=== PATIENT | male | born 1955 | race Hispanic/Latino ===

== ENCOUNTER 2017-05-04 08:20 | Observation (INO) | payer MEDICARE, BC ==
[2017-05-04] MEDS ORDERED: HYDROmorphone 0.5 mg/0.5 ml ISec IVP STA (08:50)
[2017-05-04 09:28] LABS: ALB/GLOB RATIO 1.3 (1.1-1.8); ALBUMIN 4.1 g/dL (3.0-4.8); CALCIUM 9.3 mg/dL (8.4-10.5)
[2017-05-04 09:31] LABS: BASO # 0.03 K/mm3 (0.0-2.0); BASO % 0.4 % (0.0-3.0); EOS # 0.1 (0.0-0.7); EOS % 1.3 % (1.5-5.0); GRAN # 6.33 (1.4-6.5); GRAN % 77.3 % (50.0-68.0); HEMOGLOBIN 13.4 g/dL (14.0-18.0); LYMPH # 1.1 (1.2-3.4); LYMPH % 13.4 % (22.0-35.0); MEAN CELL VOLUME 95.3 fl (80.0-105.0); MEAN CORPUSCULAR HEMOGLOBIN 31.5 pg (25.0-35.0); MEAN CORPUSCULAR HGB CONC 33.1 g/dl (31.0-37.0); MEAN PLATELET VOLUME 9.9 fl (7.0-11.0); MONO # 0.6 (0.1-0.6); MONO % 7.6 % (1.0-6.0); RBC 4.25 10^6/uL (3.5-6.1); RED CELL DISTRIBUTION WIDTH 12.5 % (11.5-14.5); WHITE BLOOD COUNT 8.2 10^3/ul (4.5-11.0)
[2017-05-04 09:35] LABS: INR 1.05 (0.93-1.08); PARTIAL THROMBOPLASTIN TIME 27.1 Seconds (25.1-36.5); PROTHROMBIN TIME 12.1 SECONDS (9.4-12.5)
--- NOTE | 2017-05-04 10:21 | ED PDOC ---
Arrival/HPI - General Chief Complaint: Lower Extremity Problem/Injury Time Seen by Provider: 05/04/17 08:31 Historian: Patient, Family - History of Present Illness Narrative History of Present Illness (Text): 05/04/17 10:18 Patient is a 61 yo male with history of ESRD, vascular disease, osteomyelitis, presents to ED sent by cue worker Dr. Salter for assessment of worsening pain and swelling to left toe. Reportedly patient has had history of recent vascular surgery with chronic wound care to left foot. Patient with increased pain and swelling to foot, scheduled for likely surgery on worsening pain. Past Medical History - Infectious Disease Hx of Infectious Diseases: None - Tetanus Immunization Tetanus Immunization: Unknown - Cardiac Hx Cardiac Disorders: Yes Hx Hypertension: Yes Hx Peripheral Vascular Disease: Yes - Pulmonary Hx Respiratory Disorders: No - Neurological Hx Neurological Disorder: No Other/Comment: Neuropathy right foot - HEENT Hx HEENT Disorder: No - Renal Hx Renal Failure: Yes (home dialysis) Other/Comment: home dialysis M,T,W, TH, and Sat. Left AV shunt - Endocrine/Metabolic Hx Diabetes Mellitus Type 1: Yes Hx Diabetes Mellitus Type 2: Yes - Hematological/Oncological Hx Blood Disorders: No - Integumentary Hx Dermatological Disorder: Yes (DIABETIC FOOT ULCER) - Musculoskeletal/Rheumatological Hx Musculoskeletal Disorders: Yes Hx Falls: Yes Hx Osteomyelitis: Yes - Gastrointestinal Hx Gastrointestinal Disorders: No Hx Gall Bladder Disease: Yes (Pt has a drain. Pt stated it was to drain out gall bladder.) - Genitourinary/Gynecological Hx Genitourinary Disorders: Yes - Psychiatric Hx Psychophysiologic Disorder: No Hx Depression: No Hx Emotional Abuse: No Hx Physical Abuse: No Hx Substance Use: No - Surgical History Hx Amputation: Yes (2nd/3rd toes right foot, great toe on left and 2 fingers left hand) Hx Coronary Artery Bypass Graft: Yes Hx Open Heart Surgery: Yes Other/Comment: Right ABK - Anesthesia Hx Anesthesia: Yes Hx Anesthesia Reactions: No Hx Malignant Hyperthermia: No - Suicidal Assessment Feels Threatened In Home Enviroment: No Family/Social History Smoking Status: Former Smoker Hx Alcohol Use: No Hx Substance Use: No Allergies/Home Meds Allergies/Adverse Reactions: Allergies gabapentin [From Neurontin] Adverse Reaction (Verified 05/04/17 09:52) ANAPHYLAXIS stress test dye Allergy (Uncoded 05/04/17 09:52) COUGH States hiccups Home Medications: Home Meds Medication Instructions Recorded Confirmed Metoprolol Tartrate 25 mg PO BID 10/02/13 05/04/17 Crestor 20 mg PO DAILY 05/13/15 05/04/17 Sevelamer Carbonate [Renvela] 3 tab PO TID 05/13/15 05/04/17 Cinacalcet [Sensipar] 60 mg PO DAILY 05/04/17 05/04/17 Insulin Aspart [Novolog FLEXPEN] 0 unit SC DAILY 05/04/17 05/04/17 Review of Systems - Review of Systems Constitutional: absent: Fevers Respiratory: absent: SOB Cardiovascular: absent: Chest Pain Gastrointestinal: absent: Abdominal Pain Genitourinary Male: absent: Dysuria Musculoskeletal: Other (foot and toe pain) Skin: Cellulitis Neurological: absent: Headache Psychiatric: absent: Depression Medical Decision Making - Lab Interpretations Lab Results: 05/04/17 09:00 05/04/17 09:00 Lab Results 05/04/17 09:00: Sodium 136, Potassium 3.6, Chloride 88 L, Carbon Dioxide 31, Anion Gap 20, BUN 42 H, Creatinine 7.7 H*, Est GFR ( Amer) 9, Est GFR ( Non-Af Amer) 7, Random Glucose 146 H, Calcium 9.3, Total Bilirubin 0.8, AST 22, ALT 26, Alkaline Phosphatase 144 H, Total Protein 7.3, Albumin 4.1, Globulin 3.2 , Albumin/Globulin Ratio 1.3 05/04/17 09:00: PT 12.1, INR 1.05, APTT 27.1 05/04/17 09:00: WBC 8.2 D, RBC 4.25, Hgb 13.4 L, Hct 40.5 L, MCV 95.3, MCH 31.5 , MCHC 33.1, RDW 12.5, Plt Count 307, MPV 9.9, Gran % 77.3 H, Lymph % (Auto) 13.4 L, Sargent % (Auto) 7.6 H, Eos % (Auto) 1.3 L, Baso % (Auto) 0.4, Gran # 6.33 , Lymph # 1.1 L, Sargent # 0.6, Eos # 0.1, Baso # 0.03 - RAD Interpretation Radiology Orders: 05/04/17 08:52 CHEST PORTABLE [RAD] Stat - Medication Orders Current Medication Orders: Discontinued Medications Hydromorphone HCl (Dilaudid) 1 mg IVP STAT STA Stop: 05/04/17 08:51 Last Admin: 05/04/17 09:49 Dose: 1 mg MAR Pain Assessment Document 05/04/17 09:49 [facility] (Rec: 05/04/17 09:50 [facility] [id number]) Pain Reassessment Is this a pain reassessment? Yes IVP Administration Document 05/04/17 09:49 [facility] (Rec: 05/04/17 09:50 [facility] [id number]) Charges for Administration # of IVP Administrations 1 Disposition/Present on Arrival - Present on Arrival History of DVT/PE: No History of Uncontrolled Diabetes: No Urinary Catheter: No History of Decub. Ulcer: No History Surgical Site Infection Following: Orthopedic Procedures, None - Disposition
[2017-05-04 11:11] LABS: VENOUS BLOOD GAS BASE EXCESS 6.9 mmol/L (0.0-2.0); VENOUS BLOOD GAS PO2 62 mm/Hg (30-55); VENOUS BLOOD PH 7.37 (7.32-7.43)
[2017-05-04] MEDS ORDERED: HYDROmorphone 0.5 mg/0.5 ml ISec IVP PRN (11:16)
[2017-05-04 11:27] VITALS: BP 106/76; PULSE 74; RESP 18; TEMP 97.9; O2SAT 95
[2017-05-04] MEDS ORDERED: Insulin Reg-LOW-Coverage SC SCH (11:30)
[2017-05-04] MEDS ORDERED: Sodium Chloride 0.45% 1,000 ML IV SCH (12:00)
[2017-05-04] MEDS: HYDROmorphone 2 mg/ml ISec IVP PRN ×2 (12:14→16:15)
--- NOTE | 2017-05-04 12:27 | RAD ---
HISTORY: osteomyelitis COMPARISON: 05/13/2015 FINDINGS: LUNGS: No active pulmonary disease. PLEURA: No significant pleural effusion identified, no pneumothorax apparent. CARDIOVASCULAR: Mild cardiomegaly OSSEOUS STRUCTURES: Sternal wires VISUALIZED UPPER ABDOMEN: Normal. OTHER FINDINGS: None. IMPRESSION: No active disease.
--- NOTE | 2017-05-04 14:34 | CP.PCM.CON ---
History of Present Illness - History of Present Illness History of Present Illness: 61 year old male with PMHx ESRD, vascular disease, osteomyelitis seen on floors after admission through ED for gangrenous, infected left second digit. Patient was advised to go through ED after he was seen in the wound care center on Tuesday05/02/17 so that he could be medically cleared for surgery tomorrow, . However, patient did not stop his Plavix and as a result surgery has been rescheduled for Tuesday05/09/16. Patient will be discharged home today. He states that his foot is not in pain. He is AAO x 3 and NAD at examination. He denies any new signs of infection including erythema, malodor, purulent drainage or increased gangrenous changes. Patient denies any further pedal complaints. He denies N/V/F/C/CP/SOB/D/posterior calf pain. Review of Systems - Review of Systems Review of Systems: ROS as per HPI Past Patient History - Infectious Disease Hx of Infectious Diseases: None - Tetanus Immunizations Tetanus Immunization: Unknown - Past Social History Smoking Status: Former Smoker - CARDIAC Hx Cardiac Disorders: Yes Hx Hypertension: Yes Hx Peripheral Vascular Disease: Yes - PULMONARY Hx Respiratory Disorders: No - NEUROLOGICAL Hx Neurological Disorder: No Other/Comment: Neuropathy right foot - HEENT Hx HEENT Problems: No - RENAL Hx Renal Failure: Yes (home dialysis) Other/Comment: home dialysis M,T,W, TH, and Sat. Left AV shunt - ENDOCRINE/METABOLIC Hx Diabetes Mellitus Type 1: Yes Hx Diabetes Mellitus Type 2: Yes - HEMATOLOGICAL/ONCOLOGICAL Hx Blood Disorders: No - INTEGUMENTARY Hx Dermatological Problems: Yes (DIABETIC FOOT ULCER) - MUSCULOSKELETAL/RHEUMATOLOGICAL Hx Musculoskeletal Disorders: Yes Hx Falls: Yes Hx Osteomyelitis: Yes - GASTROINTESTINAL Hx Gastrointestinal Disorders: No Hx Gall Bladder Disease: Yes (Pt has a drain. Pt stated it was to drain out gall bladder.) - GENITOURINARY/GYNECOLOGICAL Hx Genitourinary Disorders: Yes - PSYCHIATRIC Hx Psychophysiologic Disorder: No Hx Depression: No Hx Emotional Abuse: No Hx Physical Abuse: No Hx Substance Use: No - SURGICAL HISTORY Hx Amputation: Yes (2nd/3rd toes right foot, great toe on left and 2 fingers left hand) Hx Coronary Artery Bypass Graft: Yes Hx Open Heart Surgery: Yes Other/Comment: Right ABK - ANESTHESIA Hx Anesthesia: Yes Hx Anesthesia Reactions: No Hx Malignant Hyperthermia: No Meds Home Medications: Home Medication List Medication Instructions Recorded Confirmed Type Cinacalcet [Sensipar] 60 mg PO HS tab 05/04/17 Rx Allergies/Adverse Reactions: Allergies Allergy/AdvReac Type Severity Reaction Status Date / Time gabapentin [From Neurontin] AdvReac ANAPHYLAXIS Verified 05/04/17 09:52 stress test dye Allergy COUGH Uncoded 05/04/17 09:52 - Medications Medications: Current Medications Aspirin (Ecotrin) 81 mg PO DAILY [facility] Last Admin: 05/04/17 11:46 Dose: 81 mg Atorvastatin Calcium (Lipitor) 80 mg PO DAILY [facility] [place] Last Admin: 05/04/17 11:46 Dose: 80 mg Cinacalcet (Sensipar) 60 mg PO [facility] Hydromorphone HCl (Dilaudid) 2 mg IVP Q4H PRN PRN Reason: Pain, moderate (4-7) Last Admin: 05/04/17 12:14 Dose: 2 mg Sodium Chloride (Sodium Chloride 0.45%) 1,000 mls @ 30 mls/hr IV .Q24H [facility] Last Admin: 05/04/17 12:14 Dose: 30 mls/hr Insulin Human Regular (Humulin R Low) 0 units SC ACHS [facility] [place] PRN Reason: Protocol Last Admin: 05/04/17 11:48 Dose: Not Given Metoprolol Tartrate (Lopressor) 25 mg PO BID [facility] Last Admin: 05/04/17 11:46 Dose: 25 mg Ondansetron HCl (Zofran Inj) 4 mg IVP Q6H PRN PRN Reason: Nausea/Vomiting Last Admin: 05/04/17 11:49 Dose: 4 mg Sevelamer HCl (Renagel) 2,400 mg PO TID [facility] Vitamin B Complex/Vit C/Folic Acid (Nephro-Ghassan) 1 tab PO 0800 [facility] Physical Exam - Constitutional Appears: Well, Non-toxic, No Acute Distress - Extremities Exam Additional comments: LE focused exam: Vasc: DP/PT pulses non-palpable to left LE. CFT > 3 seconds to remaining digits. Skin temperature warm to cool from proximal to distal. Mild edema noted to left foot Neuro: Epicritic and protective sensation grossly diminished to left LE Derm: Purple/black gangrenous changes noted to entirety of left second digit. Ulceration noted on dorsal aspect of left second digit with no signs of purulent drainage, undermining, tunneling, tracking or probe to bone. Otherwise , no open lesions, wounds, maceration, xerosis, abnormal pigmentation or abnormal growths noted b/l MSK: No POP to left second digit. AKA noted to right LE. History of amputations to LLE - Neurological Exam Neurological exam: Alert, Oriented x3 - Psychiatric Exam Psychiatric exam: Normal Affect, Normal Mood Results - Vital Signs Recent Vital Signs: Last Vital Signs Temp 97.9 F 05/04/17 11:25 Pulse 74 05/04/17 11:25 Resp 18 05/04/17 11:25 BP 106/76 05/04/17 11:25 Pulse Ox 95 05/04/17 11:25 - Labs Result Diagrams: 05/04/17 09:00 05/04/17 09:00 Labs: Laboratory Results - last 24 hr 05/04/17 05/04/17 09:45 11:30 pO2 62 H VBG pH 7.37 VBG pCO2 59.0 VBG HCO3 34.1 H VBG Total CO2 35.9 H VBG O2 Sat (Calc) 93.6 H VBG Base Excess 6.9 H VBG Potassium 4.4 Sodium 132.0 Chloride 91.0 L Glucose 166 H Lactate 1.7 FiO2 21.0 POC Glucose (mg/dL) 149 H Venous Blood Potassium 4.4 Assessment & Plan - Assessment and Plan (Free Text) Assessment: 61 year old male seen at bedside for gangrenous changes to left second digit Plan: Patient seen and evaluated at bedside with attending Dr. Salter Because patient did not stop his Plavix, surgery has been rescheduled for Tuesday05/09/17 Patient to be DC home today Patient made aware of the change in plans for his surgery Entire second toe dressed with betadine, gauze, kirlix Patient advised to wear surgical shoe at all times All preoperative testing has been performed at this time - Date & Time Date: 05/04/17 Time: 14:40
--- NOTE | 2017-05-04 16:13 | CP.PCM.CON ---
History of Present Illness - History of Present Illness History of Present Illness: renal note pt going home now. he will continue with home HD and f/up with his assisted living care manager thanks for consult Past Patient History - Infectious Disease Hx of Infectious Diseases: None - Tetanus Immunizations Tetanus Immunization: Unknown - Past Social History Smoking Status: Former Smoker - CARDIAC Hx Cardiac Disorders: Yes Hx Hypertension: Yes Hx Peripheral Vascular Disease: Yes - PULMONARY Hx Respiratory Disorders: No - NEUROLOGICAL Hx Neurological Disorder: No Other/Comment: Neuropathy right foot - HEENT Hx HEENT Problems: No - RENAL Hx Renal Failure: Yes (home dialysis) Other/Comment: home dialysis M,T,W, TH, and Sat. Left AV shunt - ENDOCRINE/METABOLIC Hx Diabetes Mellitus Type 1: Yes Hx Diabetes Mellitus Type 2: Yes - HEMATOLOGICAL/ONCOLOGICAL Hx Blood Disorders: No - INTEGUMENTARY Hx Dermatological Problems: Yes (DIABETIC FOOT ULCER) - MUSCULOSKELETAL/RHEUMATOLOGICAL Hx Musculoskeletal Disorders: Yes Hx Falls: Yes Hx Osteomyelitis: Yes - GASTROINTESTINAL Hx Gastrointestinal Disorders: No Hx Gall Bladder Disease: Yes (Pt has a drain. Pt stated it was to drain out gall bladder.) - GENITOURINARY/GYNECOLOGICAL Hx Genitourinary Disorders: Yes - PSYCHIATRIC Hx Psychophysiologic Disorder: No Hx Depression: No Hx Emotional Abuse: No Hx Physical Abuse: No Hx Substance Use: No - SURGICAL HISTORY Hx Amputation: Yes (2nd/3rd toes right foot, great toe on left and 2 fingers left hand) Hx Coronary Artery Bypass Graft: Yes Hx Open Heart Surgery: Yes Other/Comment: Right ABK - ANESTHESIA Hx Anesthesia: Yes Hx Anesthesia Reactions: No Hx Malignant Hyperthermia: No Meds Home Medications: Home Medication List Medication Instructions Recorded Confirmed Type Cinacalcet [Sensipar] 60 mg PO tab 05/04/17 Rx Allergies/Adverse Reactions: Allergies Allergy/AdvReac Type Severity Reaction Status Date / Time gabapentin [From Neurontin] AdvReac ANAPHYLAXIS Verified 05/04/17 09:52 stress test dye Allergy COUGH Uncoded 05/04/17 09:52 - Medications Medications: Current Medications Aspirin (Ecotrin) 81 mg PO DAILY [facility] Last Admin: 05/04/17 11:46 Dose: 81 mg Atorvastatin Calcium (Lipitor) 80 mg PO DAILY [facility] Last Admin: 05/04/17 11:46 Dose: 80 mg Cinacalcet (Sensipar) 60 mg PO [facility] Hydromorphone HCl (Dilaudid) 2 mg IVP Q4H PRN PRN Reason: Pain, moderate (4-7) Last Admin: 05/04/17 12:14 Dose: 2 mg Sodium Chloride (Sodium Chloride 0.45%) 1,000 mls @ 30 mls/hr IV .Q24H [facility] Last Admin: 05/04/17 12:14 Dose: 30 mls/hr Insulin Human Regular (Humulin R Low) 0 units SC ACHS [facility] PRN Reason: Protocol Last Admin: 05/04/17 11:48 Dose: Not Given Metoprolol Tartrate (Lopressor) 25 mg PO BID [facility] Last Admin: 05/04/17 11:46 Dose: 25 mg Ondansetron HCl (Zofran Inj) 4 mg IVP Q6H PRN PRN Reason: Nausea/Vomiting Last Admin: 05/04/17 11:49 Dose: 4 mg Sevelamer HCl (Renagel) 2,400 mg PO TID [facility] Last Admin: 05/04/17 15:41 Dose: Not Given Vitamin B Complex/Vit C/Folic Acid (Nephro-Ghassan) 1 tab PO 0800 [facility] Results - Vital Signs Recent Vital Signs: Last Vital Signs Temp 97.9 F 05/04/17 11:25 Pulse 74 05/04/17 11:25 Resp 18 05/04/17 11:25 BP 106/76 05/04/17 11:25 Pulse Ox 95 05/04/17 11:25 - Labs Result Diagrams: 05/04/17 09:00 05/04/17 09:00 Labs: Laboratory Results - last 24 hr 05/04/17 05/04/17 09:45 11:30 pO2 62 H VBG pH 7.37 VBG pCO2 59.0 VBG HCO3 34.1 H VBG Total CO2 35.9 H VBG O2 Sat (Calc) 93.6 H VBG Base Excess 6.9 H VBG Potassium 4.4 Sodium 132.0 Chloride 91.0 L Glucose 166 H Lactate 1.7 FiO2 21.0 POC Glucose (mg/dL) 149 H Venous Blood Potassium 4.4
--- NOTE | 2017-05-04 21:32 | HP ---
HISTORY OF PRESENT ILLNESS: I was called to come to the Emergency Room to see Dontae, Dr. Salter asked me to put him on my service apparently, so he can do surgery on his foot tomorrow on his left toe, it might be amputated. He had a recent vascular surgery with chronic wound care to the left foot with increased pain and swelling and scheduled for surgery. PAST MEDICAL HISTORY: End-stage renal disease, vascular disease, osteomyelitis, hypertension, neuropathy of the right foot, he is on home dialysis, diabetes, diabetic foot ulcer, falls, he has had a gallbladder disease, the patient has a drain out of the gallbladder, history of amputation of second and third toes of the right foot, right toe and left foot, two fingers of the left hand. He has had coronary artery bypass graft done, open heart surgery and right above-knee surgery. SOCIAL HISTORY: He is a former smoker. No alcohol. No drugs. ALLERGIES: GABAPENTIN AND STRESS TEST DYE. MEDICATIONS: He takes metoprolol, Crestor, Renvela, Sensipar and FlexPen insulin. REVIEW OF SYSTEMS: No acute vision or hearing changes. No sore throat. No chest pain. No palpitation. No shortness of breath. No coughing. No abdominal pain. No nausea, vomiting, constipation or diarrhea. No problems urinating. Left foot is bandaged. He is having toe issues. It might need surgery to remove his toe. He has had cellulitis also there. No headaches, anxiety or depression. PHYSICAL EXAMINATION: VITAL SIGNS: 97.9 temperature, 74 pulse, 106/76 blood pressure, 18 respiratory rate, 95% O2 on room air. HEENT: His head is atraumatic and normocephalic. Extraocular muscles are intact. Throat is moist. NECK: Supple. HEART: Regular rate. LUNGS: Decreased breath sounds, but clear to auscultation. ABDOMEN: Soft, nontender. Positive bowel sounds. No guarding. No rebound. No CVA tenderness. EXTREMITIES: He has right above-knee amputation. He has a second and third toes in the right foot. Right toe on left foot and two finger at the left hand amputated. We are working now with left foot toes. It is very possible that might need of amputation. NEUROLOGIC: He is alert and oriented x3. Cranial nerves II to XII are grossly intact. Normal speech. Thyroid midline. No palpable lymphadenopathy. LABORATORY DATA: He had blood test done. INR was 1.05. He has a 136 sodium, potassium 3.6, BUN is 42, creatinine is 7.7 on dialysis, GFR is 7, sugar is 149, calcium is 9.3, total bilirubin is 0.8, AST is 22, ALT is 26, alkaline phosphatase is 144. Total protein is 7.3. INR is 1.05. White count is 8.2, hemoglobin 13.4, hematocrit 40.5, platelets are 307. Chest x-ray; there was no acute disease. PLAN: He will have a consult with Renal and Podiatry. He will have IV fluid and his regular medications. We will check his labs tomorrow. He is here for a bad left foot toe, which needs probable surgery by Podiatry. Trevin Adame DO
[2017-05-05] MEDS ORDERED: Multivitamin Vitamin B Complex (Nephro-Vite) Tab PO SCH (08:00)
--- NOTE | 2017-05-05 18:14 | CARD ---
APPROVED REPORT EKG Measurement Heart [id number] <Conclusion> Sinus rhythm with 1st degree AV block with occasional premature ventricular complexes Left ventricular hypertrophy with QRS widening and repolarization abnormality Abnormal ECG
== END 2017-05-04 16:39 | disposition home or self-care (01) ==
LOC: ED 08:20 → ERH 09:31 → INTOOBSV 09:31 → ERH 11:02 → 3RNO 11:20
PROVIDERS: ADMIT Family Medicine; ATTEND Family Medicine
DX: E11.52 Type 2 diabetes mellitus with diabetic peripheral angiopathy with gangrene (principal); I96 Gangrene, not elsewhere classified; M86.9 Osteomyelitis, unspecified; E11.69 Type 2 diabetes mellitus with other specified complication; I12.0 Hypertensive chronic kidney disease with stage 5 chronic kidney disease or end stage renal disease; N18.6 End stage renal disease; E11.22 Type 2 diabetes mellitus with diabetic chronic kidney disease; E11.40 Type 2 diabetes mellitus with diabetic neuropathy, unspecified; E11.621 Type 2 diabetes mellitus with foot ulcer; L97.529 Non-pressure chronic ulcer of other part of left foot with unspecified severity; Z99.2 Dependence on renal dialysis; Z79.4 Long term (current) use of insulin; Z89.611 Acquired absence of right leg above knee; Z95.1 Presence of aortocoronary bypass graft; Z87.891 Personal history of nicotine dependence; Z89.022 Acquired absence of left finger(s)
CPT/HCPCS: 71045; 80053; 82803; 82948; 85025; 85610; 85730; 87040; 93005; 96374; 99284; G0378; J1170; J2405; J7030

== ENCOUNTER 2017-05-09 09:53 | Day surgery (SDC) | payer MEDICARE, BC ==
[2017-05-06 12:49] VITALS: BMI 28.1
[2017-05-09 10:45] LABS: CALCIUM 9.9 mg/dL (8.4-10.5)
[2017-05-09] MEDS ORDERED: Bupivacaine 0.5% Inj(30mL) ONE (12:07)
[2017-05-09] MEDS ORDERED: Lidocaine 1% Inj (20ml) ONE (12:07)
[2017-05-09] MEDS ORDERED: Lidocaine 2% Inj (20ml) ONE (12:16)
[2017-05-09] MEDS ORDERED: HYDROmorphone 0.5 mg/0.5 ml ISec IVP PRN (13:17)
--- NOTE | 2017-05-09 13:24 | PCM.SURG1 ---
Surgeon's Initial Post Op Note - Surgeon's Notes Surgeon: Dr. Vianey Salter, DPM Roof Designer: Roney Rader, PGY1 Type of Anesthesia: IV Sedation, Local Anesthesia Administered By: Dr. Martin Pre-Operative Diagnosis: Osteomyelitis with gangrenous changes of left second digit Operative Findings: See dictation report. M- 3-0 vicrly, 3-0 nylon. I- Preop: 10 cc 2% lidocaine plain Post-Operative Diagnosis: Same Operation Performed: Amputation of left second digit at MTPJ with removal of left second metatarsal head Specimen/Specimens Removed: Bone of left second digit Estimated Blood Loss: EBL {In ML}: 5 Blood Products Given: N/A Drains Used: No Drains Post-Op Condition: Good Date of Surgery/Procedure: 05/09/17 Time of Surgery/Procedure: 13:24
[2017-05-09 14:11] VITALS: RESP 18; TEMP 97.4
--- NOTE | 2017-05-09 14:29 | RAD ---
PROCEDURE: Left Foot Radiographs. HISTORY: s/p left second digit amputation COMPARISON: MRI from 03/01/2017 FINDINGS: BONES: There is interval amputation of the 2nd toe. There are stable postsurgical changes status post partial amputation the great toe with preservation of the base of the proximal phalanx. JOINTS: Normal. SOFT TISSUES: Round lucency in the soft tissues at the base of the 2nd toe likely represents postsurgical changes. OTHER FINDINGS: Atherosclerotic vascular calcifications are present. IMPRESSION: Status post amputation of the 2nd toe, suspect post- operative changes in the base of the 2nd toe at the amputation site.
[2017-05-09 15:02] VITALS: BP 143/71; PULSE 69; O2SAT 95
--- NOTE | 2017-05-12 06:24 | OP ---
PROCEDURE DATE: 05/09/2017 PREOPERATIVE DIAGNOSES: Osteomyelitis with gangrenous changes to the left second digit. POSTOPERATIVE DIAGNOSES: Osteomyelitis with gangrenous changes to the left second digit. NAME OF PROCEDURE: Amputation of left second digit at metatarsal phalangeal joint with removal of left second metatarsal head and all nonviable tissue. SURGEON: Vianey Salter DPM CAR PINCHER: Roney Rader, PGY-1 ANESTHESIOLOGIST: Dr. Martin. TYPE OF ANESTHESIA: IV sedation with local. INDICATIONS: The patient is a 61-year-old male with the above diagnosis. The patient has exhausted all conservative treatments at this time and now requires surgical intervention. The patient signed the consent after careful explanation of risks, benefits, complications, and alternatives for surgical procedure. No guarantees were given nor implied. N.p.o. status was confirmed prior to taking the patient to the OR. PREPARATION: The patient was brought into the operating room and left on his stretcher in a supine position. A time-out was performed for identification of the correct patient and procedure. After induction of IV sedation, the patient received a total of 10 mL of 2% lidocaine plain to the base of the left second digit. The left lower extremity was then prepped and draped in a normal sterile manner and the procedure began. No tourniquet was used during the procedure. DESCRIPTION OF PROCEDURE: Attention was then turned to the left second digit, which is noted to have a deep dark purple/black coloration to it distally as well as diffuse maceration of the superficial tissue at its base. The toe was also noted to be edematous and a large ulceration was noted on the dorsal aspect of the toe. The toe was also cold to touch. Using a fresh #15 blade and a towel clamp, a circumferential incision was made down to the level of the bone at the level of the metatarsophalangeal joint. The left second digit was then disarticulated at the metatarsophalangeal joint. The soft tissue surrounding the second metatarsal was then dissected away from the metatarsal head thereby exposing the metatarsal. Using a Micro Sagittal saw, the metatarsal head was cut and excised from the field. Both the left second digit and the bone from the second metatarsal were sent to pathology for examination. A pulse lavage was then introduced into the field and 3 L of normal sterile saline were used to copiously flush out the amputation site. After the pulse lavage was used, a wound culture was taken of the amputation site and sent to micro for examination. The amputation site was then closed with 3-0 Vicryl suture deep and 3-0 nylon suture superficially and the wound was dressed with dry sterile dressing. POSTOPERATIVE CONDITION: The patient tolerated the anesthesia and procedure well and was escorted to the recovery room with vital signs stable and neurovascular status intact to the left lower extremity. The patient is to remain partial weightbearing to heel to the left lower extremity. Podiatry will continue to follow the patient while he is in-house. Upon discharge from the hospital, the patient will follow up with Dr. Salter in [facility] at his next regularly scheduled appointment. Roney Rader DPM Vianey Salter DPM TEVIN
== END 2017-05-09 15:20 | disposition home or self-care (01) ==
LOC: SDS 09:53
PROVIDERS: ATTEND Podiatrist
DX: M86.8X8 Other osteomyelitis, other site (principal); E13.52 Other specified diabetes mellitus with diabetic peripheral angiopathy with gangrene; I25.10 Atherosclerotic heart disease of native coronary artery without angina pectoris; Z95.1 Presence of aortocoronary bypass graft; E78.5 Hyperlipidemia, unspecified; Z87.891 Personal history of nicotine dependence; I12.0 Hypertensive chronic kidney disease with stage 5 chronic kidney disease or end stage renal disease; E11.22 Type 2 diabetes mellitus with diabetic chronic kidney disease; N18.6 End stage renal disease; Z79.82 Long term (current) use of aspirin
CPT/HCPCS: 28820; 36415; 73630; 80048; 87075; 88305; 88311; J1170; J2250; J2405; J2704; J3010; J7120